=== PATIENT | female | born 1960 | race Caucasian/White ===

== ENCOUNTER 2016-11-30 18:04 | Emergency (ER) | payer SELFPAY ==
[2016-11-30] MEDS ORDERED: Lidocaine 1% 10 MG/ML - 20 ML VIAL SUBCUT ONE (18:12)
[2016-11-30 18:57] VITALS: RESP 18; TEMP 98.1
[2016-11-30] MEDS ORDERED: Amoxicill/Clav 875/125mg Tab 1 TAB TAB PO SCH (19:45)
--- NOTE | 2016-11-30 21:27 | PDOC ---
Animal Bite HPI - General Chief Complaint: Animal Bite Stated Complaint: DOG BITE Date Seen by Provider: 11/30/16 Time Seen by Provider: 18:10 Source: POSITIVE: Patient Exam Limitations: POSITIVE: No limitations Nurse's Notes Reviewed & Considered: Yes - History of Present Illness Initial Comments: The patient is a 56-year-old female who presents to the emergency department with a dog bite to her left arm. She states that her 2 dogs at home both of which way around 60 pounds were in a fight. She tried to break them up when one of the dogs bit her on the left arm just above her elbow. She states that she pulled away when the dog bit causing a tear laceration to her arm. This is her only bite and her only complaint at this time. She reports that her last tetanus shot was only a couple of years ago. She states that the dogs are up-to -date on their immunizations and our house dogs. Have you received a tetanus shot in the past 10 years?: Yes - Patient Home Medications Home Medications: Home Medications Sumatriptan Succinate [Imitrex] 50 mg PO Q6-8H #10 tab 07/25/15 Cetirizine HCl [All Day Allergy Relief] 10 mg PO QD PRN tab 01/06/16 Ranitidine HCl [Zantac 75] 75 mg PO QD tab 01/06/16 Cyclobenzaprine HCl 5 mg PO TID #90 tab 08/19/16 Albuterol Sulfate [Proventil Hfa] 1 - 2 puff INH Q4-6H PRN #1 inhaler 09/27/16 Duloxetine HCl [Cymbalta] 60 mg ORAL QD #30 tab 10/13/16 Hydrocodone/Acetaminophen [Hydrocodon-Acetaminophn 10-325] 1 tab PO QID PRN # 120 tab 11/24/16 Lorazepam [Ativan] 0.5 mg PO BID #60 tab 11/24/16 Amoxicill/Clav 875/125mg [Augmentin 875/125mg] 1 each PO BID #12 tablet - Patient Allergies Allergies/Adverse Reactions: Allergies Allergy/AdvReac Type Severity Reaction Status Date / Time gabapentin Allergy Intermediate VOMITING Verified 11/30/16 18:34 propoxyphene HCl Allergy Intermediate HIVES Verified 11/30/16 18:34 [From [facility]] propoxyphene napsylate Allergy Mild RASH Verified 11/30/16 18:34 [[facility]] Past Medical History - heen HEENT History: Denies History Cardiovascular History: Denies History Respiratory History: Denies History Additional Respiratory History: tobacco abuse Gastrointestinal History: GI Bleed Additional Gastrointestinal History: HAD AN ULCER FROM [facility] Genitourinary History: Denies History Endocrine History: Denies History Musculoskeletal History: Back Pain Prosthesis or Implant: Yes (PLATE IN RIGHT ORBITAL/ PINS AND SCREWS IN NECK) Additional Musculoskeletal History: ALL LEVELS BACK PAIN DJD, NECK FUSION Neurological History: Migraines Blood Disorders: Denies History Additional Blood Disorders History: Hep C Psychiatric History: Depression, Anxiety Disorders, OCD Female Reproductive History: Denies History Obstetrical History: Denies History Cancer History: Denies History In Past Year Been Physically Harmed or Verbally Threatened: No History of MDRO: Unknown Tobacco Use: Current Every Day Smoker Alcohol Use: None Substance Use Type: None Previous Surgical History: Yes Type / Date of Surgery: RIGHT KNEE SCOPE/ LEFT ANKLE SCOPE/ NECK SX/ EXP LAP/ T& A/ ORIF RIGHT ORBIT AFTER FALL Anesthesia Reactions: No Malignant Hyperthermia: No Significant Family History: Cancer Additional Family History: MOTHER HAS LIVER AND LUNG AND BREAST CANCER AND HEART ATTACK Past Medical History Reviewed: Reviewed - No Changes ROS - Limitations ROS Limitations: No Limitations (Review of systems otherwise noncontributory) Animal Bite Physical Exam - General Appearance General Appearance: REPORTS: Alert, Cooperative, No Acute Distress - HEENT HEENT: POSITIVE: Head Inspection Nml - Respiratory Respiratory: POSITIVE: No Respiratory Distress, Breath Sounds Normal - Cardiovascular Cardiovascular: POSITIVE: Regular Rate and Rhythm, Heart Sounds Normal - Extremities Additional Extremities Details: Examination of the left arm reveals a Y-shaped laceration to the medial aspect of her arm just proximal to the elbow, the wound extends through the subcutaneous tissue down to the level of the muscle however does not involve the muscle itself, she has good flexion and extension of her arm at the elbow as well as normal sensation and movement in her left hand, good radial pulse in the left wrist, there is minimal bleeding from the wound. There is no visible foreign body within the wound. There is some associated ecchymosis surrounding this wound as well as some swelling posteriorly - Neuro/Vascular/Tendon Neuro/Vascular/Tendon: POSITIVE: Oriented X3, Motor Normal, Sensation Normal, No Vascular Compromise Procedures - Laceration/Wound Repair Did patient have a laceration repair: Yes Site of Laceration/Wound: Left arm Wound Length (cm): 5 Wound's Depth, Shape: Stellate (Y-shaped), Contused tissue Distal CMS: Yes Skin Prep: Betadine Prep Local Anesthesia Used - Indicate Amt Used in Comment: Lidocaine 1%: Yes Wound Explored: Clean Wound Repaired With: Sutures single layer Suture Size/Type: 4:0, Ethilon Number of Sutures: 1 Layer Closure?: No Sterile Dressing Applied?: Yes Animal Bite Progress - Results Reviewed by me Xrays/CTs/US Reviewed by me: Yes Radiology Findings: X-ray of the left elbow reveals no evidence of fracture or foreign body - Patient's Progress MDM / ED Course: The laceration was repaired as above. Wound care instructions were discussed and dressing was applied here in the emergency department. The patient was started on Augmentin 875 mg twice a day for 1 week. She is advised to monitor closely for any sign of infection. She is advised to have sutures removed in 10 -14 days. She has hydrocodone at home that she can take as needed for pain. - Consult Counseled: POSITIVE: Patient, RE: DX, RE: Need for F/U Patient Care Time - Estimated PCT Patient Care Time (In Minutes): 35 Vital Signs - Recent Vital Signs Vital Signs: Vital Signs (Last 8 hours) Temp Pulse Resp BP Pulse Ox 11/30/16 18:05 98.1 F 111 H 18 157/98 96 - VS Reviewed Vital Signs Reviewed: Yes Discharge Clinical Impression: Dog bite, Laceration - injury Discharge Disposition: Discharged to Home Condition: Stable Prescriptions / Orders: Amoxicill/Clav 875/125mg [Augmentin 875/125mg] 1 each PO BID #12 tablet Patient Instructions Given at Discharge: Animal Bite (ED), Laceration (ED) Additional Instructions: Keep the dressing in place and keep dry for the first 24 hours. After that keep covered with a little bit of antibiotic ointment during the day and leave open at night. You have been prescribed Augmentin 875 mg twice a day for one week which is an antibiotic. Because this is a bite it still will be at some increased risk of infection. You can take your [place] as needed for pain. Return to the emergency room if increased pain or swelling, drainage from the wound, fever or other sign of infection. Sutures should be removed in 10-14 days. Follow Up With: SANDRA RODRIGUEZ [Primary Care Provider] -
--- NOTE | 2016-11-30 21:30 | DI ---
XR ELBOW COMPLETE MIN 3VW,11/30/2016 6:12 PM: Clinical History: Bitten by a dog Previous Exam: None at this facility. Findings: 3 views of the left elbow are obtained, and demonstrate some air density within the soft tissues near the medial epicondyles. There is no radiopaque foreign body identified. Skeletal structures are unremarkable. Impression: Soft tissue irregularity without radiopaque foreign body.
== END 2016-11-30 19:46 | disposition home or self-care (01) ==
LOC: ER 18:04
DX: S41.112A Laceration without foreign body of left upper arm, initial encounter (principal); W54.0XXA Bitten by dog, initial encounter
CPT/HCPCS: 12002; 73080; 99282; J2001

== ENCOUNTER 2016-12-06 21:16 | Emergency (ER) | payer SELFPAY ==
[2016-12-06 22:05] VITALS: RESP 18; TEMP 97.2
[2016-12-06] MEDS ORDERED: SULFAMETHOXAZOLE/TRIMETHOPRIM 800/160 MG TABLET PO SCH (22:15)
--- NOTE | 2016-12-06 23:11 | PDOC ---
Wound/Burn Recheck HPI - General Chief Complaint: Integumentary Stated Complaint: Swelling and puss from wound site Date Seen by Provider: 12/06/16 Time Seen by Provider: 21:25 Source: POSITIVE: Patient Exam Limitations: POSITIVE: No limitations Nurse's Notes Reviewed & Considered: Yes - History of Present Illness Initial Comments: The patient is a 56-year-old female who presents to the emergency department with increased pain and swelling surrounding a dog bite wound on her left arm. She was evaluated here in the emergency room on 11/30/2016 after she was bitten by one of her dogs while attempting to break up a fight between her dogs. She had a tear type laceration to the left arm. This was repaired here in the emergency department. She was placed on Augmentin at that time. She reports over the past several days she has noted some increased pain and swelling around the wound. She also had some drainage from several areas of the wound. She denies fevers or chills or any other associated complaints. Have you received a tetanus shot in the past 10 years?: Yes - Patient Home Medications Home Medications: Home Medications Sumatriptan Succinate [Imitrex] 50 mg PO Q6-8H #10 tab 07/25/15 Cetirizine HCl [All Day Allergy Relief] 10 mg PO QD PRN tab 01/06/16 Ranitidine HCl [Zantac 75] 75 mg PO QD tab 01/06/16 Cyclobenzaprine HCl 5 mg PO TID #90 tab 08/19/16 Albuterol Sulfate [Proventil Hfa] 1 - 2 puff INH Q4-6H PRN #1 inhaler 09/27/16 Duloxetine HCl [Cymbalta] 60 mg ORAL QD #30 tab 10/13/16 Hydrocodone/Acetaminophen [Hydrocodon-Acetaminophn 10-325] 1 tab PO QID PRN # 120 tab 11/24/16 Lorazepam [Ativan] 0.5 mg PO BID #60 tab 11/24/16 Amoxicill/Clav 875/125mg [Augmentin 875/125mg] 1 each PO BID #12 tablet Sulfamethoxazole/Trimethoprim [Bactrim Ds Tablet] 1 tab PO BID #14 tab 12/06/16 - Patient Allergies Allergies/Adverse Reactions: Allergies Allergy/AdvReac Type Severity Reaction Status Date / Time gabapentin Allergy Intermediate VOMITING Verified 12/06/16 21:23 propoxyphene HCl Allergy Intermediate HIVES Verified 12/06/16 21:23 [From [facility]] propoxyphene napsylate Allergy Mild RASH Verified 12/06/16 21:23 [From [facility]-N 100] Past Medical History - heen HEENT History: Denies History Cardiovascular History: Denies History Respiratory History: Denies History Additional Respiratory History: tobacco abuse Gastrointestinal History: GI Bleed Additional Gastrointestinal History: HAD AN ULCER FROM [facility] Genitourinary History: Denies History Endocrine History: Denies History Musculoskeletal History: Back Pain, Other (please comment) Prosthesis or Implant: Yes (PLATE IN RIGHT ORBITAL/ PINS AND SCREWS IN NECK) Additional Musculoskeletal History: ALL LEVELS BACK PAIN DJD, NECK FUSION Neurological History: Migraines Blood Disorders: Other (please comment) Additional Blood Disorders History: Hep C Psychiatric History: Depression, Anxiety Disorders, OCD Female Reproductive History: Denies History Obstetrical History: Denies History Cancer History: Denies History In Past Year Been Physically Harmed or Verbally Threatened: No History of MDRO: Unknown Tobacco Use: Heavy Tobacco Smoker Alcohol Use: None Substance Use Type: None Previous Surgical History: Yes Type / Date of Surgery: RIGHT KNEE SCOPE/ LEFT ANKLE SCOPE/ NECK SX/ EXP LAP/ T& A/ ORIF RIGHT ORBIT AFTER FALL Anesthesia Reactions: No Malignant Hyperthermia: No Significant Family History: Cancer Additional Family History: MOTHER HAS LIVER AND LUNG AND BREAST CANCER AND HEART ATTACK Past Medical History Reviewed: Reviewed - No Changes ROS - Limitations ROS Limitations: No Limitations Constitution: DENIES: Chills, Fever Wound/Burn Recheck Exam - General Appearance General Appearance: POSITIVE: Alert, Cooperative, No Acute Distress - Skin Skin: POSITIVE: Other (Examination of the left arm reveals a wound to the medial aspect of her arm just proximal to the elbow, sutures are in place, there is some surrounding erythema and induration, when pressure is applied around the wound there is some serosanguineous drainage from the wound which is cultured) - HEENT HEENT: POSITIVE: Head Inspection Nml - Respiratory / CVS Respiratory / CVS: POSITIVE: Breath Sounds Normal, No Respiratory Distress, Heart Sounds Normal, Regular Rate/Rhythm Wound/Burn Recheck Progress - Patient's Progress MDM / ED Course: Cultures were obtained from the serosanguineous drainage from the wound. Several of the sutures were removed to encourage further drainage. At this point is unclear whether this represents worsening infection or if this is just inflammatory response to the injury. The patient was placed on Bactrim to provide additional coverage and will finish her Augmentin as well. She is advised to have a wound recheck in 2-3 days. She was advised that if she has continued worsening or failure to improve that this wound may need to be opened up and cleaned out. She is advised to continue warm compresses. She has pain medication at home that she can take if needed. Return to the emergency room if she develops increased pain or swelling, fever or chills, any other worsening or change in symptoms. - Consult Counseled: POSITIVE: Patient, RE: DX, RE: Need for F/U Patient Care Time - Estimated PCT Patient Care Time (In Minutes): 15 Vital Signs - Recent Vital Signs Vital Signs: Vital Signs (Last 8 hours) Temp Pulse Resp BP Pulse Ox 12/06/16 21:20 97.2 F 84 18 142/92 94 - VS Reviewed Vital Signs Reviewed: Yes Discharge Clinical Impression: Wound infection, Dog bite Discharge Disposition: Discharged to Home Condition: Stable Prescriptions / Orders: Sulfamethoxazole/Trimethoprim [Bactrim Ds Tablet] 1 tab PO BID #14 tab Patient Instructions Given at Discharge: Animal Bite (ED) Additional Instructions: Cultures from the wound were taken and should be available in next couple of days. You've been started on Bactrim DS one twice a day for 7 days in addition to the Augmentin that you are taking. Continue warm compresses. Continue pain medication as previously prescribed. Return to the emergency room if increased pain or swelling, fevers or chills, any worsening or change in symptoms. Recommend follow-up with primary care for a wound recheck in 2-3 days. If continued worsening or failure to improve this might require further surgical treatment. Follow Up With: SANDRA RODRIGUEZ [Primary Care Provider] -
== END 2016-12-06 22:17 | disposition home or self-care (01) ==
LOC: ER 21:16
DX: L08.89 Other specified local infections of the skin and subcutaneous tissue (principal); S51.852A Open bite of left forearm, initial encounter; W54.0XXA Bitten by dog, initial encounter
CPT/HCPCS: 87070; 87075; 87205; 99282

== ENCOUNTER → 2016-12-10 | Outpatient (CLI) | payer SELFPAY ==
--- NOTE | 2016-12-10 14:20 | DI ---
ULTRASOUND OF THE LEFT UPPER ARM, 12/10/2016 11:09 AM: Clinical History: Swelling of the left arm. The patient sustained a dogbite wound approximately one w [place] earlier that required suturing. Previous Exam: None at this facility. Scans are performed in multiple projections over the medial aspect of the left antecubital fossa with the high resolution linear array probe. Color Doppler ultrasound was also utilized. In the region of the laceration, there is edema of the skin in the subcutaneous fat. Flow is present in the brachial artery and the brachial vein. There are 2 small fluid collections present on the medi al aspect of the wound. Both of these fluid collections are in the subcutaneous tissues. The smaller fluid collection measures less than 10 mm in diameter and the larger fluid collection measures approx imately 5 x 5 x 15 mm. Both of these most likely represent small residual hematomas. Readin. There are 2 small fluid collections associated with the wound that most likely represent small re sidual hematomas. There is edema in the skin as well as a subcutaneous fat in proximity to the wound. 2. The vessels in proximity to the wound are patent.
== END ==
LOC: US 11:05
PROVIDERS: ATTEND Nurse Practitioner Family
DX: M79.89 Other specified soft tissue disorders (principal); W54.0XXD Bitten by dog, subsequent encounter
CPT/HCPCS: 76882

== ENCOUNTER 2018-09-28 10:00 | Inpatient (IN) ==
[~2018-09-28 10:00] MED LIST: LIDOCAINE W/ SODIUM BICARB 0.5 ML SYR SUBD ONE; Lactated Ringers 1,000 ML PRIMARY IV ONE; Nasal Sanitizer POPSWAB ampule 3 AMP (Nozin) PREOP DOSE ENOS SCH; ceFAZolin Inj 2gm (Premix) 2 GM/50 ML BAG IV ONE
[2018-11-02] MEDS ORDERED: Nasal Sanitizer POPSWAB ampule 3 AMP (Nozin) PREOP DOSE ENOS SCH (06:00)
[2018-11-02] MEDS ORDERED: Lactated Ringers 1,000 ML PRIMARY IV ONE ×3 (06:00→11:03)
[2018-11-02] MEDS ORDERED: ceFAZolin Inj 2gm (Premix) 2 GM/50 ML BAG IV ONE ×2 (06:00→06:17)
[2018-11-02] MEDS ORDERED: LIDOCAINE W/ SODIUM BICARB 0.5 ML SYR SUBD ONE (06:00)
[2018-11-02] MEDS ORDERED: LIDOCAINE W/ SODIUM BICARB 0.5 ML SYR ONE (06:17)
[2018-11-02] MEDS ORDERED: Sodium Chloride 0.9% 250 ML ONE (06:27)
[2018-11-02] MEDS ORDERED: Vancomycin Inj 1gm vial ONE ×2 (06:27→07:53)
[2018-11-02 07:28] LABS: BASOPHILS # (AUTO) 0.02 10*3/UL; BASOPHILS % (AUTO) 0.3 % (0-1); EOSINOPHILS # (AUTO) 0.12 10*3/UL; EOSINOPHILS % (AUTO) 1.7 % (0-8); Hemoglobin [HGB] 12.3 g/dL (12.0-16.0); LYMPHOCYTES # (AUTO) 2.96 10*3/uL; MEAN CORPUSCULAR HEMOGLOBIN 30.8 PG (27-31); MEAN CORPUSCULAR HGB CONC 33.2 g/dL (33-37); MEAN CORPUSCULAR VOLUME 92.7 FL (81-99); MEAN PLATELET VOLUME 7.9 FL (7.4-12.2); MONOCYTES # (AUTO) 0.54 10*3/UL (0.3-0.8); MONOCYTES % (AUTO) 7.5 % (5-15); NEUTROPHILS # (AUTO) 3.52 10*3/UL; NEUTROPHILS % (AUTO) 49.1 % (50-80); RED BLOOD COUNT 3.99 10^6/uL (4.20-5.40)
[2018-11-02 07:30] LABS: PLATELET MORPHOLOGY COMMENT NORMAL MORPHOLOGY (NORM); RBC MORPHOLOGY COMMENT NORMAL MORPHOLOGY (NORM); WBC MORPHOLOGY COMMENT NORMAL MORPHOLOGY (NORM)
[2018-11-02 07:40] LABS: BLOOD UREA NITROGEN 12 mg/dL (7-22); BUN/CREATININE RATIO 17.14 (6-20); SERUM ALBUMIN 4.1 g/dL (3.5-4.8)
[2018-11-02] MEDS ORDERED: REMIFENTANIL 1 MG/1 ML IV ONE (07:49)
[2018-11-02] MEDS ORDERED: fentaNYL Inj 250 MCG/5 ML VIAL ONE (07:49)
[2018-11-02] MEDS ORDERED: REMIFENTANIL HCL 2 MG VIAL IV ONE ×2 (07:49→11:04)
[2018-11-02] MEDS ORDERED: MIDAZOLAM 5 MG/1 ML ONE (07:49)
[2018-11-02] MEDS ORDERED: Sodium Chloride 0.9% vial 10 ML ONE (07:52)
[2018-11-02] MEDS ORDERED: BACITRACIN 50,000 UNIT VIAL IRRIG ONE (07:53)
[2018-11-02] MEDS ORDERED: THROMBIN (BOVINE) 20,000 UNIT KIT TOPICAL ONE (07:53)
[2018-11-02] MEDS ORDERED: Propofol 1,000 MG/100 ML VIAL IV ONE (07:56)
[2018-11-02] MEDS ORDERED: LIDOCAINE MPF 2% - 5 ML (20 MG/1 ML) ONE (07:59)
--- NOTE | 2018-11-02 08:01 | EKG ---
[address] [address] Measurements Intervals [place] Rate: 87 P: 76 OH: 158 QRS: 62 QRSD: 88 T: 68 QT: 387 QTc: 431 Interpretive Statements SINUS RHYTHM No previous ECG available for comparison Electronically Signed On 11-02-18 08:29:43 MDT by Jonas Portillo MD [email or web address]
[2018-11-02] MEDS ORDERED: IPRATROPIUM/ALBUTEROL SULFATE 3 ML NEB NEB ONE ×2 (08:06→08:08)
[2018-11-02] MEDS ORDERED: PROPOFOL 10 MG/1 ML (200 MG/20 ML) VIAL IV ONE ×2 (08:07→10:05)
[2018-11-02] MEDS ORDERED: KETAMINE HCL 100 MG/2 ML SYRINGE IV ONE (08:11)
[2018-11-02] MEDS ORDERED: ACETAMINOPHEN 500 MG TABLET PO ONE (08:18)
[2018-11-02] MEDS ORDERED: ONDANSETRON 4 MG/2 ML VIAL ONE (08:18)
[2018-11-02] MEDS ORDERED: DEXAMETHASONE PF 10 MG/1 ML VIAL ONE (08:18)
[2018-11-02] MEDS ORDERED: fentaNYL Inj 100 MCG/2 ML VIAL IVP PRN (09:59)
[2018-11-02] MEDS ORDERED: LIDOCAINE W/ SODIUM BICARB 0.5 ML SYR SUBD PRN (09:59)
[2018-11-02] MEDS ORDERED: Prochlorperazine Edisylate Inj 10mg/2ml vial IVP PRN (09:59)
[2018-11-02] MEDS ORDERED: HYDROmorphone 2 MG/1 ML ONE ×3 (11:12→12:14)
[2018-11-02] MEDS ORDERED: NALOXONE 0.4 MG/1 ML VIAL ONE (11:32)
--- NOTE | 2018-11-02 11:37 | OPNOTE.NEU ---
Operative Note Operative Note: Neurosurgical Services Operative Note [facility] [place] [id number] [address] Date of Surgery: 11/02/18 Preoperative Diagnosis: C4-5, 5-6 disc disorder with radiculopathy Pseudoarthrosis, C4-5, C5-6 Post-Op Diagnosis Codes: Same Procedure(s): Anterior cervical hardware removal; 53772 Exploration of fusion; 76541 C4-5, C5-6 Anterior cervical decompression and fusion 1. Anterior Cervical Decompression; 53873, 04351 2. Anterior Cervical Arthrodesis; 77175, 3. Anterior Cervical Plating; 45065 4. Allograft Structural Graft; 13766 X2 5. Preparation of bone graft: A. Local autograft, same incision; B. Jefferson of morselized iliac crest autograft, separate incision; C. Jefferson of bone marrow aspirate, iliac crest; D. Addition of osteopromotive calcium compound; allograft DBM; 6. Intraoperative microsurgical technique 7. Intraoperative fluoroscopic navigation, [id number] 8. Intraoperative continuous neural monitoring, motor and sensory Surgeon(s): Jewel Cruz MD Net Developer Software Engineer C(s): JASON Vieira, JASON Jacobo Anesthesia: General Anesthesia Anesthesiologist / NON ACOUSTIC OPERATOR: Houston Staley CRNA Brief Findings: Pseudoarthrosis, C4-5, C5-6. Procedure(s): We discussed the procedure, risks, advantages and disadvantages of surgical intervention at length. To prevent further pain, disability and potential progression of neurologic deficits, the patient would like to proceed with surgery. Introduction: After obtaining informed consent, careful consideration of the pre-operative studies and evaluation, the patient asked to proceed with surgery. The patient was taken to the operating room, given an anesthetic, positioned and prepared for surgery. All pressure points were meticulously padded and great care was taken to insure the patient was appropriately positioned to avoid any abnormal strain on the extremities or any other area. The operative region was prepared with iodine solution and isolated aseptically using routine sterile draping. Position / Approach: The patient was placed in the supine position such that an anterior approach could be taken to the neck. Exposure: A right transverse neck incision at the abnormal levels which was confirmed using fluoroscopy was made through skin, subcutaneous fat and the platysma muscle. Using sharp and blunt dissection, the anterior spine was exposed medial to the sternocleidomastoid muscle and carotid sheath and the longus coli muscles were carefully reflected off the vertebrae using electrocautery and a deep self-retaining retractor was place beneath them. REMOVAL OF ANTERIOR INSTRUMENTATION: After the anterior aspect of the spine was exposed, the previously implanted plated was removed in steps opposite those used to implant it. It was obvious that the plate was loose since the screws were found to be only finger tight. After the screws were removed, the plate was dissected free of the surrounding adhesive scar tissue and it was removed. INSPECTION OF FUSION: Distraction pins which were placed into the vertebral bodies were used to distract the level while the area was inspected using the microscope for visualization. There was movement of the levels with distraction confirming the patient had a pseudoarthrosis. The inner spaces were then distracted to improve exposure during the decompression. There was clear movement of both levels consistent with a pseudoarthrosis. REDO DECOMPRESSION: Using the microscope for visualization, I dissected along the fibrous union removing the fibrous tissue back to the level of the spinal canal. There previously placed Peak implants were removed. Osteophytes alone the endplates of the level above and below were identified and removed using curettes as well as rongeurs and the drill. The epidural space was explored after the impinging elements were removed to confirm that there was no further compression upon the neural elements. An identical decompression was performed at both levels. ARTHRODESIS: After the decompression, the height of the inner space was measured and an allograft structural bone graft was selected which would fit snuggly within the space. The graft was loaded with bone graft which was prepared as described. The graft was placed using the fluoroscope to assess the graft position so that it could be countersunk appropriately. HARVEST / PREPARATION of BONE GRAFT: The "bone graft" was prepared from the patient's own bone derived from the left hip collected by curetting bone from the hip through a separate slab incision(). This morselized bone was admixed with bone marrow aspirate also obtained from the hip (). Autolog ous local bone which was removed during the decompression through the same incision used for the fusion was stripped of surrounding soft tissues, morselized () and mixed with osteopromotive calcium compound as well as allograft demineralized bone matrix ([id number]), and this was combined with the previously described hip graft and concentrated bone marrow aspirate to form the "bone graft." ANTERIOR PLATE INSTRUMENTATION: Having completed the decompression and placement of the interbody spacers, an Alphatec Trestle plate was selected which spanned the levels and also could be contoured to the anterior aspect of the patient's cervical spine. Osteophytes along the anterior spine were removed to allow the plate to conform to the spine appropriately. The plate was then secured to the spine using 12-14 mm screws, all of which were locked into position using the locking mechanism of the plate. Additional bone graft material was placed around the plate and around the implanted spacer within the inner space. OTHER TOOLS USED / UTILITY: All manipulation of the neural elements was performed using the microscope for visualization. As well, the fluoroscope was used to confirm the levels as indicated as well as to assist during implant placement and later to assess the patient's spinal alignment. There were no intra operative complications. CLOSURE: The wound was irrigated with copious amounts of antibiotic impregnated saline solution and immaculate hemostasis was achieved using thrombin soaked Gelfoam, bone wax along the bony margins, as well as electrocautery. Surgicel was used to cover the implanted graft and plate. A drain was placed in the pre- vertebral space and tunneled to an exit site lateral to the formed incision. The wound was then closed in anatomical layers using Vicryl suture in the subcutaneous tissue layers followed by Steri-Strips on the skin. NEED FOR BUTADIENE CONVERTER HELPER: Casimiro Wong PA-C, was instrumental throughout the operation to assist with exposure of the neural structures and protect them as the bony elements were removed. He was also instrumental during placement of the implant(s) which often takes more than two hands to perform safely and efficiently. Priscilla Delgadillo PA-C functioned identically. Estimated Blood Loss: Minimal Operative hemorrhage? Yes, expected amount. Drains: None Condition: Good Complications: None Authenticated by Dr. Cruz On Production
[2018-11-02] MEDS: HYDROmorphone 2 MG/1 ML IVP PRN ×6 (11:48→20:28)
--- NOTE | 2018-11-02 12:37 | CRNA.PROGR ---
Anesthesia Time - Procedure/Recovery Time Start Date: 11/02/18 End Date: 11/02/18 Anesthesia : Time In: 08:42 Anesthesia : Time Out: 11:38 Anesthesia : Total Time: 176 - Total Anesthesia Time Total Anesthesia Time (minutes): 176 - Other Weight: 51.075 kg Height: 5 ft 3 in Body Mass Index (BMI): 19.9 Physical Status: P3 Anesthesia Type: General Anesthesia : ET
--- NOTE | 2018-11-02 12:38 | CRNA.PROGR ---
Anesthesia Recovery Phase I - Post Anesthesia Evaluation Pain Level: 1
[2018-11-02] MEDS ORDERED: ESTROGENS,CONJUGATED 30 GM CREAM VAGINAL SCH (13:10)
[2018-11-02] MEDS ORDERED: MORPHINE SULFATE 2 MG/1 ML IVP PRN (13:10)
[2018-11-02] MEDS ORDERED: [UNRECOGNIZED DRUG - OTHER] INH PRN (13:10)
[2018-11-02] MEDS ORDERED: LABETALOL 20 MG/4 ML (5 MG/1 ML) SYRINGE IVP PRN (13:10)
[2018-11-02] MEDS ORDERED: ACETAMINOPHEN 325 MG TABLET PO PRN (13:10)
[2018-11-02] MEDS ORDERED: SUMATRIPTAN 20 MG INASL SCH (13:10)
[2018-11-02] MEDS ORDERED: Ondansetron ODT Tab 4 MG TAB PO PRN (13:10)
[2018-11-02] MEDS ORDERED: ALBUTEROL SULFATE 8.5 GM HFA INHALER INH PRN (13:10)
[2018-11-02] MEDS ORDERED: DOCUSATE 100 MG CAPSULE PO PRN (13:10)
[2018-11-02] MEDS ORDERED: CYCLOBENZAPRINE 10 MG TABLET PO PRN (13:10)
[2018-11-02] MEDS ORDERED: ANORO ELLIPTA INH PRN (13:10)
[2018-11-02] MEDS ORDERED: IPRATROPIUM/ALBUTEROL SULFATE 3 ML NEB NEB PRN (13:10)
[2018-11-02] MEDS ORDERED: Zolpidem Tab 5 MG TAB PO PRN (13:10)
[2018-11-02] MEDS ORDERED: DIAZEPAM 10 MG/2 ML (5 MG/1 ML) CARPUJECT IVP PRN (13:10)
[2018-11-02] MEDS ORDERED: HYDRALAZINE 20 MG/1 ML IVP PRN (13:10)
[2018-11-02] MEDS ORDERED: ONDANSETRON 4 MG/2 ML VIAL IVP PRN (13:10)
--- NOTE | 2018-11-02 13:23 | DI ---
XR C-SPINE 2-3 VW 11/02/2018 11:23 AM History: [facility] DI ^Assess post op alignment, plate position Comparison: 08/31/2018. Findings: Portable AP and crosstable lateral views of the cervical spine reveal postsurgical changes consistent with anterior C4-6 fusion and interbody graft placement. There is no evidence of hardware fracture or loosening. Drain tubing projects over the anterior soft tissues. There is no acute fractu re or spondylolisthesis. The vertebral bodies are of normal height. Review of alignment shows preserv ation of the normal cervical lordosis. Posterior alignment and lateral masses are normal. C1 articula angela normally with C2 and the occiput. Degenerative changes are not significantly progressed compared to prior imaging No cervical ribs are seen. The pre-vertebral soft tissues appear normal. Visualized portions of the lung apices, paranasal sinuses, and mastoid air cells are clear. Impression: 1. Postsurgical changes consistent with anterior C4-6 fusion without evidence of hardware complicatio n.
[2018-11-02] MEDS ORDERED: ALBUTEROL SULFATE 2.5 MG/3 ML NEB PRN (13:49)
[2018-11-02] MEDS ORDERED: CYCLOBENZAPRINE HCL 7.5 MG PO SCH (15:00)
[2018-11-02] MEDS: oxyCODONE-ACETAMINOPHEN 5-325 TAB PO PRN ×3 (15:03→22:42)
[2018-11-02] MEDS: D5-1/2NS + 20mEq KCL 1,000 ML PRIMARY IV SCH (16:09)
[2018-11-02] MEDS: ceFAZolin Inj 1 GM in Sodium Chloride 0.9% 100 ML IV SCH (16:28)
[2018-11-02] MEDS: LORazepam 1 MG TABLET PO SCH (20:28)
[2018-11-02] MEDS ORDERED: VARENICLINE TARTRATE 1 MG PO SCH (21:00)
[2018-11-02] MEDS ORDERED: MELATONIN 5 MG TABLET PO SCH (21:00)
[2018-11-02] MEDS ORDERED: DULOXETINE 60 MG CAPSULE PO SCH (21:45)
[2018-11-03] MEDS: HYDROmorphone 2 MG/1 ML IVP PRN ×2 (00:36→06:57)
[2018-11-03] MEDS: ceFAZolin Inj 1 GM in Sodium Chloride 0.9% 100 ML IV SCH (00:36)
[2018-11-03] MEDS: D5-1/2NS + 20mEq KCL 1,000 ML PRIMARY IV SCH (01:57)
[2018-11-03] MEDS: oxyCODONE-ACETAMINOPHEN 5-325 TAB PO PRN ×2 (02:47→06:58)
[2018-11-03 06:56] VITALS: BP 160/90; RESP 18; TEMP 97.8
--- NOTE | 2018-11-03 08:30 | NEURO.PROG ---
Subjective Post Op Day: 1 Pain Management: PO Atkins Catheter: No Flatus: Yes Diet: Regular Ambulating: Yes Date of Service: 11/03/18 Time of Service: 08:24 Objective : Data - Labs CBC and BMP: 11/02/18 07:25 11/02/18 07:25 - Vital Signs Vital Signs and I&O: Vital Signs - Last Taken Temperature 97.8 F 11/03/18 06:54 Pulse Rate 100 11/03/18 06:54 Respiratory Rate 18 11/03/18 06:54 Blood Pressure 160/90 11/03/18 06:54 Pulse Ox 98 11/03/18 06:54 Intake and Output (24hr x 4 totals) 11/01/18 11/02/18 11/03/18 11/04/18 05:59 05:59 05:59 05:59 Intake Total 7851 / 7851 Output Total 4400 / 4400 Balance 3451 / 3451 Objective : Exam - General General Appearance: No Acute Distress, Cooperative Additional General Exam Details: Resting and ambulatory O2 saturation measured at 95% on room air. - Head Head Exam: Normal Inspection - Eye Eye Exam: Normal Appearance - ENT ENT Exam: Normal Exam - Neck Neck Exam: Normal Inspection Additional Neck Exam Details: Mild tenderness over surgical site, no swelling. Surgical drain in place. She is wearing cervical collar for comfort. - Respiratory Respiratory Exam: Breathing Non Labored - Cardiovascular Cardiovascular Exam: RRR - GI/Abdominal GI/Abdominal Exam: Non Tender - Rectal Rectal Exam: Deferred - External Exam: Deferred Exam: Deferred - Extremities Extremities Exam: Normal Inspection, Full ROM - Back Back Exam: Normal Inspection, Full ROM - Neurological Neurological Exam: Alert, Oriented x 3, Normal Gait - Psychiatric Psychiatric Exam: Normal Affect, Anxious - Integumentary Integumentary Exam: Warm, Dry Additional Integumentary Exam Details: Right anterior cervical bandaged surgical wound with no swelling. Surgical drain in place, output red and measured at 15mls. - Central Line Examination Central Line Present on Admission: No Assessment and Plan - Assessment / Plan Additional Assessment/Plan Details: Post op day one, s/p C4-5, C5-6 anterior cervical discectomy and fusion. 1. She is doing well. 2. She is wearing a cervical collar for comfort. Discussed and explained that she does not need to wear a cervical collar. She asked about wearing a soft collar and we have no objection to that. 3. She is seen by Pain management. She has prescribed muscle relaxers at home. Rx given for Percocet 5/325 for post surgical pain, given Rx for Bactrim DS. She will take both as directed and follow up with pain management. 4. She will follow up with [facility]illo here in [place] in 2 weeks for post operative evaluation. 5. She has history of COPD/Emphysema. Resting and ambulatory SPO2 at 95% on room air. She is to follow up with her primary care physician for continued care.
[2018-11-03] MEDS: LORazepam 1 MG TABLET PO SCH (08:43)
[2018-11-03] MEDS ORDERED: PANTOPRAZOLE 40 MG TABLET PO SCH (09:00)
[2018-11-03] MEDS ORDERED: DULOXETINE 60 MG CAPSULE PO SCH (09:00)
[2018-11-03 09:52] VITALS: O2SAT 95
--- NOTE | 2018-11-03 11:12 | PTI REPORT ---
Thank you for the referral of Carole Lane. She was seen on 11/02/18 for an inpatient evaluation status post cervical fusion. SUBJECTIVE: The patient is a 58-year-old female who underwent a cervical fusion earlier today. Per nursing report, the patient is asking for a cervical collar secondary to her pain. The patient has gotten up with nursing staff and was in the bathroom upon PT arrival. Per nursing staff, she is slightly loopy due to her meds and just coming out of surgery. The patient's is present as well. He states that they live in [place]. They do take care of a few of their grandchildren there. He states that they have three stairs into their home with a bilateral hand railing. He does report that the patient did have a prior cervical fusion 15 years ago which resulted in a non fusion and she has been dealing with neck pain since that time and has had to be on medication to control her pain. 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 The patient states that she was able to ambulate without use of an assistive device prior to surgery and was independent with most of her ADLs, just limited at times secondary to her neck pain. PAST MEDICAL HISTORY: Past medical history can be found in the patient's medical record. OBJECTIVE FINDINGS: General observations: The patient was alert to setting upon PT arrival. Per patient request, the cervical collar was put in place. The patient and her were both instructed on post op precautions to include lifting restriction and moving her neck within a pain free range of motion but to keep moving, as well as the importance of walking after surgery to prevent blood clots. Transfers: The patient did require mod assist to transfer from the toilet to standing and required assistance to ambulate back to her bed. Bed mobility: The patient was able to transfer into bed independently. Ambulation: The patient was able to ambulate 150 feet with contact guard assist x1 for safety. ASSESSMENT: The patient has good rehab potential. Problem List: Patient is status post cervical fusion Short-Term Goals: To be met by discharge from inpatient: Patient will be able to ambulate at least 150 feet safely and independently. Patient will be able to ascend and descend at least one flight of stairs safely and independently in order to return back home. Long-Term Goals: To be met following discharge from inpatient: Patient may be seen by outpatient physical therapy if deemed necessary by her surgeon. TREATMENT PLAN: Patient will be seen B.I.D during the week and one time per day over the weekend as an inpatient to address the above goals and objectives. INITIAL TREATMENT: Treatment today consisted of the initial evaluation and one unit of functional activity. Following treatment, the patient was left with nursing staff to finish her intake. We came back up later and the patient was able to ambulate 150 feet. The patient was left in bed with bed alarm set and call light within reach. [facility]
--- NOTE | 2018-11-06 11:18 | OTI REPORT ---
Thank you for the referral of Carole Lane. She was seen on 11/03/18 for an occupational therapy inpatient evaluation status post cervical fusion. SUBJECTIVE: The patient is a 58-year-old female who underwent a cervical fusion. The patient was in her bed upon the therapist's arrival. Her was sitting with her. She reports she does live in [place] and she is hoping to do outpatient therapy in [place]. The patient was very concerned about her family situation as far as her grandson and her not being able to drive. She is also concerned that her is not going to let her do as much as she needs to around the house. PAST MEDICAL HISTORY: Past medical history can be found in the patient's medical record. OBJECTIVE FINDINGS: Activities of daily living: The patient was already dressed upon arrival; however, the patient was able to demonstrate upper extremity dressing including donning her bra with good cervical precautions. The patient already had lower extremities dressed but the patient was able to demonstrate the ability to untie and tie her shoes. The patient does understand her cervical precautions. The patient reports she has all adaptive equipment that she will need at home and does not feel like she needs anything. ASSESSMENT: The patient is doing well and is looking at being discharged home and does not need any further OT services. TREATMENT PLAN: Patient will be discharged from OT services at this time. INITIAL TREATMENT: Treatment today consisted of the initial evaluation activities only. MAXIMO
== END 2018-11-03 10:11 | disposition home or self-care (01) | DRG 472 ==
LOC: OPS 11-02 06:30 → MED/SURG 11-02 06:30 → OR 11-02 06:30 → OPS 11-02 06:39 → EDSTATUS 11-02 08:30 → MED/SURG 11-02 12:48 → UNDODISOB 11-03 10:11 → OPS 11-03 11:07
PROVIDERS: ADMIT Neurological Surgery; ATTEND Neurological Surgery